=== PATIENT | male | born 1970 | race Caucasian/White ===

== ENCOUNTER 2017-12-22 19:09 | Emergency (ER) | payer BC ==
[2017-12-22] MEDS ORDERED: XYLOCAINE 1% HCL 20 ML MDV IJ ONE (19:48)
[2017-12-22] MEDS ORDERED: Adacel Vial IM ONE ×2 (19:48→19:55)
--- NOTE | 2017-12-22 19:49 | ERPHSYRPT ---
- History of Present Illness Time Seen by Provider: 12/22/17 19:45 Source: patient, family Exam Limitations: no limitations Physician History: The patient is a 47-year-old male with his complaining that he accidentally cut his left knee with a newly sharpened chainsaw while cutting a tree limb. He was able to walk on his leg but he did not bend it because it would open up the wound and cause bleeding. He denies numbness or tingling. His past medical history is unremarkable. He does not know when his last tetanus vaccination was given to him. Timing/Duration: today Quality: painful Severity: moderate Location: extremities (left knee) Possible Causes: other (chain saw) Associated Symptoms: other (laceration), No paresthesia Allergies/Adverse Reactions: No Known Drug Allergies Allergy (Unverified 12/22/17 19:48) - Review of Systems Constitutional: No Fever, No Chills Eyes: No Symptoms Ears, Nose, & Throat: No Symptoms Respiratory: No Cough, No Dyspnea Cardiac: No Chest Pain, No Edema, No Syncope Abdominal/Gastrointestinal: No Abdominal Pain, No Nausea, No Vomiting, No Diarrhea Genitourinary Symptoms: No Dysuria Musculoskeletal: No Back Pain, No Neck Pain Skin: Other (laceration) Neurological: No Dizziness, No Focal Weakness, No Sensory Changes Psychological: No Symptoms Endocrine: No Symptoms Hematologic/Lymphatic: No Symptoms Immunological/Allergic: No Symptoms All Other Systems: Reviewed and Negative - Nursing Vital Signs Nursing Vital Signs: Initial Vital Signs Temperature 99.1 F 12/22/17 19:35 Pulse Rate 72 12/22/17 19:35 Respiratory Rate 16 12/22/17 19:35 Blood Pressure 161/97 12/22/17 19:35 O2 Sat by Pulse Oximetry 97 12/22/17 19:35 Pain Scale Pain Intensity 4 - Physical Exam General Appearance: no apparent distress, alert Eye Exam: PERRL/EOMI, eyes nml inspection Ears, Nose, Throat Exam: normal ENT inspection, pharynx normal, moist mucous membranes Neck Exam: normal inspection, non-tender, supple, full range of motion Respiratory Exam: normal breath sounds, lungs clear, No respiratory distress Cardiovascular Exam: regular rate/rhythm, normal heart sounds Gastrointestinal/Abdomen Exam: soft, mass, No tenderness Rectal Exam: not done Back Exam: normal inspection, normal range of motion, No CVA tenderness, No vertebral tenderness Extremity Exam: normal inspection, normal range of motion Neurologic Exam: alert, oriented x 3, cooperative, normal mood/affect, sensation nml, No motor deficits Skin Exam: laceration (7 cm linear laceration to superior aspect of left knee) SpO2 Interpretation: normal Oxygen Delivery: Room Air Procedures - Laceration/Wound Repair Left Knee Wound Location: Left, upper leg Irrigated: Yes Hibiclens Prep: Yes Anesthesia: local, 1% Lidocaine Volume Anesthetic (ccs): 20 Wound Repaired With: sutures Suture Size/Type: 4-0, ethilon Number of Sutures: 15 Layer Closure?: No Sterile Dressing Applied?: Yes Splint Applied?: No Sling Applied?: No - Radiology Exams Left Knee X-ray Interpretation: Interpreted by me, Negative, No Fracture Ordered Tests: Active Orders 24 hr Category Date Time Status Wound Care STAT Care 12/22/17 19:48 Active Wound Care STAT Care 12/22/17 19:55 Active KNEE (3 VIEWS) Stat Exams 12/22/17 19:50 Taken Medication Summary Discontinued Medications Generic Name Dose Route Start Last Admin Trade Name Freq PRN Reason Stop Dose Admin Amoxicillin/Clavulanate Potassium 875 mg 12/22/17 19:50 12/22/17 20:40 Augmentin 875-125 Tablet PO 12/22/17 19:51 875 mg STAT ONE Administration Amoxicillin/Clavulanate Potassium Confirm 12/22/17 19:55 Augmentin 875-125 Tablet Administered 12/22/17 19:56 Dose 875 mg .ROUTE .STK-MED ONE Diphtheria/Tetanus/Acell Pertussis 0.5 ml 12/22/17 19:48 12/22/17 20:39 Adacel Vial IM 12/22/17 19:49 0.5 ml .ONCE ONE Administration Diphtheria/Tetanus/Acell Pertussis Confirm 12/22/17 19:55 Adacel Vial Administered 12/22/17 19:56 Dose 0.5 ml IM .STK-MED ONE Ketorolac Tromethamine 60 mg 12/22/17 20:34 12/22/17 21:05 Toradol 30 Mg Injection IM 12/22/17 20:35 60 mg STAT ONE Administration Ketorolac Tromethamine Confirm 12/22/17 20:36 Toradol 30 Mg Injection Administered 12/22/17 20:37 Dose 60 mg .ROUTE .STK-MED ONE Lidocaine HCl 20 ml 12/22/17 19:48 12/22/17 20:40 Xylocaine 1% Hcl 20 Ml Mdv IJ 12/22/17 19:49 20 ml STAT ONE Administration Lidocaine HCl Confirm 12/22/17 19:50 Xylocaine 1% Hcl 20 Ml Mdv Administered 12/22/17 19:51 Dose 20 ml .ROUTE .STK-MED ONE - Progress Progress: improved Counseled pt/family regarding: diagnosis, need for follow-up, rad results - Departure Time of Disposition: 20:36 Departure Disposition: Home Clinical Impression: Laceration of left knee Condition: Stable Critical Care Time: No Referrals: GIULIANO TOWNSEND MD [Primary Care Provider] - Additional Instructions: You had a laceration of the left knee that was closed with 15 sutures. You were given Toradol 60 mg by IM. You were also given a tetanus vaccination. You were given Augmentin 875 orally in the ER. Continue with Augmentin 875 to times a day for 10 days. Take naproxen 500 mg 2 times a day as needed. Have the sutures removed by your primary medical doctor in 12-14 days. You were given a work excuse for tomorrow. Prescriptions: Amoxicillin/Potassium Clav [Augmentin 875-125 Tablet] 875 mg PO BID #20 tablet Naproxen 500 mg PO BID PRN #30 tablet
[2017-12-22] MEDS ORDERED: XYLOCAINE 1% HCL 20 ML MDV ONE (19:50)
[2017-12-22] MEDS ORDERED: Augmentin 875-125 Tablet PO ONE (19:50)
[2017-12-22] MEDS ORDERED: Augmentin 875-125 Tablet ONE (19:55)
[2017-12-22] MEDS ORDERED: TORAdol 30 mg Injection IM ONE (20:34)
[2017-12-22] MEDS ORDERED: TORAdol 30 mg Injection ONE (20:36)
[2017-12-22 20:50] VITALS: O2SAT 96
[2017-12-22 21:07] VITALS: BP 168/98; PULSE 68
--- NOTE | 2017-12-23 08:58 | XRAY ---
Indication: Pain following chainsaw injury. Comparison: None 3 views of the left knee demonstrates mild anterior soft tissue swelling and small suprapatellar spur. No other bony, articular, or soft tissue abnormalities.
== END 2017-12-22 21:30 | disposition home or self-care (01) ==
LOC: ED 19:09
PROC: 0HQLXZZ Repair Left Lower Leg Skin, External Approach (ICD-10-PCS; principal; 2017-12-22)
DX: S81.012A Laceration without foreign body, left knee, initial encounter (principal); W45.8XXA Other foreign body or object entering through skin, initial encounter; Y93.H2 Activity, gardening and landscaping
CPT/HCPCS: 12002; 73562; 90471; 90715; 96372; 99284; J1885; A9270-GY

== ENCOUNTER 2019-04-03 14:27 | Emergency (ER) | payer BC ==
[2019-04-03] MEDS ORDERED: TYLENOL 325 MG PO STA (15:19)
[2019-04-03] MEDS ORDERED: TORAdol 30 mg Injection IV ONE (15:20)
[2019-04-03] MEDS ORDERED: DUONEB 0.5-3 MG/3 ml Neb IH ONE ×2 (15:21→16:01)
[2019-04-03] MEDS ORDERED: TYLENOL 325 MG ONE ×2 (15:30→15:33)
[2019-04-03] MEDS ORDERED: TORAdol 30 mg Injection ONE (15:30)
--- NOTE | 2019-04-03 15:43 | ERPHSYRPT ---
- History of Present Illness Time Seen by Provider: 04/03/19 15:01 Source: patient Exam Limitations: no limitations Patient Subjective Stated Complaint: Pt states "I am sick. I have body aches, fever, sore throat, I feel horrible." Triage Nursing Assessment: pt presented alert and oriented X 3, skin wpd pt ambulates with an upright steady gait, able to speak in clear full sentences pt has intermittant cough. Physician History: 48 years old male presented in the ER with chief complaint offlulike symptoms for the last 5 days. Patient reports having low-grade fever intermittently responding to [id number] medications with a MAXIMUM TEMPERATURE of 102 couple of days ago. He is also complaining of generalized body aches. 2 days ago he started to have nonproductive cough with some chest soreness. Today he' s having nasal/sinus congestion and mild headache. Did not have a flu shot this CZ. Denies any sick contact. Timing/Duration: day(s) (5), intermittent, worse Cough Quality/Degree: moderate, dry cough Associated Symptoms: fever, chills, chest pain/soreness, cough, muscle aches, nasal congestion, sinus infection, sore throat Allergies/Adverse Reactions: No Known Drug Allergies Allergy (Verified 04/03/19 14:36) Hx Tetanus, Diphtheria Vaccination/Date Given: Yes Hx Influenza Vaccination/Date Given: No Hx Pneumococcal Vaccination/Date Given: No Immunizations Up to Date: Yes - Review of Systems Constitutional: Fever, Chills, Fatigue, Malaise Eyes: No Symptoms Ears, Nose, & Throat: Nose Congestion, Throat Swelling Respiratory: Cough, Wheezing Cardiac: No Symptoms Abdominal/Gastrointestinal: No Symptoms Genitourinary Symptoms: No Symptoms Musculoskeletal: Myalgias Neurological: No Symptoms Psychological: No Symptoms Endocrine: No Symptoms Hematologic/Lymphatic: No Symptoms Immunological/Allergic: No Symptoms - Past Medical History Pertinent Past Medical History: No - Past Surgical History Past Surgical History: No - Social History Smoking Status: Never smoker Exposure to second hand smoke: No Drug Use: none Patient Lives Alone: No - Nursing Vital Signs Nursing Vital Signs: Initial Vital Signs Temperature 98.9 F 04/03/19 14:32 Pulse Rate 98 H 04/03/19 14:32 Respiratory Rate 20 04/03/19 14:32 Blood Pressure 178/93 04/03/19 14:32 O2 Sat by Pulse Oximetry 95 04/03/19 14:32 Pain Scale Pain Intensity 4 - Physical Exam General Appearance: no apparent distress Eye Exam: eyes nml inspection Ears, Nose, Throat Exam: normal ENT inspection, TMs normal, pharyngeal erythema Neck Exam: normal inspection, non-tender, supple, full range of motion Respiratory Exam: normal breath sounds, lungs clear, respiratory distress Cardiovascular Exam: regular rate/rhythm, normal heart sounds, normal peripheral pulses Gastrointestinal/Abdomen Exam: soft, normal bowel sounds, No tenderness, No distention Back Exam: normal inspection Extremity Exam: normal inspection, normal range of motion Neurologic Exam: alert, oriented x 3, cooperative, rn home health II-XII nml as tested, sensation nml Skin Exam: normal color SpO2 Interpretation: normal SpO2: 95 O2 Delivery: Room Air - Course Nursing assessment & vital signs reviewed: Yes Ordered Tests: Active Orders 24 hr Category Date Time Status CHEST 2 VIEWS (PA AND LAT) Stat Exams 04/03/19 15:20 Taken CBC W DIFF Stat Lab 04/03/19 16:05 Completed CMP Stat Lab 04/03/19 16:05 Completed Peak Expiratory Flow Rate ONCE RT 04/03/19 16:16 Completed Respiratory Therapy Assessment DAILY RT 04/03/19 16:16 Completed Medication Summary Discontinued Medications Generic Name Dose Route Start Last Admin Trade Name Freq PRN Reason Stop Dose Admin Acetaminophen 650 mg 04/03/19 15:19 Tylenol 325 Mg PO 04/03/19 15:20 STAT STA Acetaminophen Confirm 04/03/19 15:30 Tylenol 325 Mg Administered 04/03/19 15:31 Dose 325 mg .ROUTE .STK-MED ONE Acetaminophen Confirm 04/03/19 15:33 Tylenol 325 Mg Administered 04/03/19 15:34 Dose 325 mg .ROUTE .STK-MED ONE Albuterol/Ipratropium 3 ml 04/03/19 15:21 04/03/19 16:16 Duoneb 0.5-3 Mg/3 Ml Neb IH 04/03/19 15:22 3 ml STAT ONE Administration Albuterol/Ipratropium Confirm 04/03/19 16:01 Duoneb 0.5-3 Mg/3 Ml Neb Administered 04/03/19 16:02 Dose 3 ml IH .STK-MED ONE Ketorolac Tromethamine 30 mg 04/03/19 15:20 Toradol 30 Mg Injection IV 04/03/19 15:21 STAT ONE Ketorolac Tromethamine Confirm 04/03/19 15:30 Toradol 30 Mg Injection Administered 04/03/19 15:31 Dose 30 mg .ROUTE .STK-MED ONE Oseltamivir Phosphate 75 mg 04/03/19 16:48 Tamiflu 75mg Capsule PO 04/03/19 16:49 STAT ONE Oseltamivir Phosphate Confirm 04/03/19 16:50 Tamiflu 75mg Capsule Administered 04/03/19 16:51 Dose 75 mg PO .STK-MED ONE Prednisone 60 mg 04/03/19 16:53 Deltasone 20 Mg PO 04/03/19 16:54 STAT ONE Lab/Rad Data: Laboratory Result Diagrams 04/03/19 16:05 04/03/19 16:05 Laboratory Results 04/03/19 04/03/19 04/03/19 Range/Units 16:15 16:05 16:05 WBC 4.8 (4.0-10.5) K/mm3 RBC 4.74 (4.1-5.6) M/mm3 Hgb 15.0 (12.5-18.0) gm/dl Hct 43.1 (42-50) % MCV 90.9 (78-100) fl MCH 31.6 (26-32) pg MCHC 34.8 (32-36) g/dl RDW 12.6 (11.5-14.0) % Plt Count 137 L (150-450) K/mm3 MPV 9.7 (7.5-11.0) fl Gran % 76.9 H (36.0-66.0) % Eos # (Auto) 0.05 (0-0.5) Absolute Lymphs (auto) 0.54 L (1.0-4.6) Absolute Monos (auto) 0.51 (0.0-1.3) Lymphocytes % 11.3 L (24.0-44.0) % Monocytes % 10.6 (0.0-12.0) % Eosinophils % 1.0 (0.00-5.0) % Basophils % 0.2 (0.0-0.4) % Absolute Granulocytes 3.69 (1.4-6.9) Basophils # 0.01 (0-0.4) Sodium 138 (137-145) mmol/L Potassium 4.4 (3.5-5.1) mmol/L Chloride 101 (98-107) mmol/L Carbon Dioxide 31 H (22-30) mmol/L Anion Gap 10.8 (5-15) MEQ/L BUN 10 (9-20) mg/dL Creatinine 1.15 (0.66-1.25) mg/dL Estimated GFR > 60.0 ML/MIN Glucose 126 H (74-106) mg/dL Calcium 8.9 (8.4-10.2) mg/dL Total Bilirubin 0.70 (0.2-1.3) mg/dL AST 48 (17-59) U/L ALT 31 (0-50) U/L Alkaline Phosphatase 54 (38-126) U/L Serum Total Protein 7.1 (6.3-8.2) g/dL Albumin 4.1 (3.5-5.0) g/dL Influenza Type A Ag NEGATIVE (NEGATIVE) Influenza Type B Ag POSITIVE (NEGATIVE) RSV (PCR) NEGATIVE (Negative) Group A Strep Antibody NEGATIVE (NEGATIVE) - Progress Progress: improved, re-examined Air Movement: good Progress Note: 48-year-old is evaluated for flulike symptoms.patient does not have fever today. He had mild wheezing and given breathing treatment along with Tylenol and Toradol. On reevaluation the patient is feeling much improved. Chest x- ray did not show any acute pneumonic infiltrate/consolidation. Grossly unremarkable blood work. Does have influenza P. Despite the fact patient has had symptoms going on for the last 5 days, I would still treat him with Tamiflu. We'll also give steroids to help with breathing. Recommended taking Tylenol/Robitussin for symptomatic relief. I do not think patient needs any further workup or inpatient admission and is stable for discharge. He does not have a toxic appearance. Plan discussed with patient that he seems understanding. Discussed symptoms like signs of worsening needing return he voices understanding. 04/03/19 16:57 Blood Culture(s) Obtained: No Antibiotics given: No Counseled pt/family regarding: lab results, diagnosis, need for follow-up, rad results - Departure Departure Disposition: Home Clinical Impression: Influenza B Condition: Stable Critical Care Time: No Referrals: GIULIANO TOWNSEND MD [ACTIVE STAFF] - Follow Up with PCP/3 days Instructions: Fever, Adult (DC), Flu, Adult (DC) Additional Instructions: followup with primary care physician for reevaluation. Drink plenty of fluids. Take Tylenol/Robitussin as needed. Return to ER for worsening fever/ difficulty breathing etc.
[2019-04-03 16:14] LABS: Absolute Neutrophil Ct (ANC) 3.69 (1.4-6.9); BASOPHIL % 0.2 % (0.0-0.4); Basophil (Absolute #) 0.01 (0-0.4); Eosinophil (Absolute #) 0.05 (0-0.5); Hematocrit 43.1 % (42-50); Lymphocyte (Absolute #) 0.54 (1.0-4.6); Lymphocytes % 11.3 % (24.0-44.0); Mean Cell Volume 90.9 fl (78-100); Mean Corpuscular Hemoglobin 31.6 pg (26-32); Mean Corpuscular Hgb Concent. 34.8 g/dl (32-36); Mean Platelet Volume 9.7 fl (7.5-11.0); Monocyte (Absolute #) 0.51 (0.0-1.3); Monocytes % 10.6 % (0.0-12.0); Neutrophil % 76.9 % (36.0-66.0); Platelet Count 137 K/mm3 (150-450); Red Blood Count 4.74 M/mm3 (4.1-5.6); Red Cell Distribution Width 12.6 % (11.5-14.0); White Blood Count 4.8 K/mm3 (4.0-10.5)
[2019-04-03 16:26] LABS: ALBUMIN 4.1 g/dL (3.5-5.0); ALKALINE PHOSPHATASE 54 U/L (38-126); ANION GAP 10.8 MEQ/L (5-15); BLOOD UREA NITROGEN 10 mg/dL (9-20); CHLORIDE 101 mmol/L (98-107); Calcium 8.9 mg/dL (8.4-10.2); Carbon Dioxide 31 mmol/L (22-30); Creatinine 1 1.15 mg/dL (0.66-1.25); Glucose 126 mg/dL (74-106); Potassium 4.4 mmol/L (3.5-5.1); SGOT/AST 48 U/L (17-59); SGPT/ALT 31 U/L (0-50); SODIUM 138 mmol/L (137-145); Total Protein 7.1 g/dL (6.3-8.2)
[2019-04-03 16:46] LABS: INFLUENZA A NEGATIVE (NEGATIVE)
[2019-04-03 16:47] LABS: INFLUENZA B POSITIVE (NEGATIVE); RESPIRATORY SYNCTIAL VIRUS NEGATIVE (Negative)
[2019-04-03] MEDS ORDERED: Tamiflu 75MG Capsule PO ONE ×2 (16:48→16:50)
[2019-04-03] MEDS ORDERED: DELTASONE 20 MG PO ONE (16:53)
[2019-04-03] MEDS ORDERED: DELTASONE 20 MG ONE (16:55)
[2019-04-03 17:24] VITALS: BP 148/84; PULSE 72; O2SAT 96
--- NOTE | 2019-04-03 20:10 | XRAY ---
Indication: Cough. Comparison: None PA/lateral chest demonstrates normal heart and lungs. Bony thorax intact.
== END 2019-04-03 17:23 | disposition home or self-care (01) ==
LOC: ED 14:27
DX: J11.1 Influenza due to unidentified influenza virus with other respiratory manifestations (principal)
CPT/HCPCS: 36000; 36415; 71046; 80053; 85025; 87631; 87651; 94150; 94640; 96372; 99284; J1885; A9270-GY

== ENCOUNTER 2022-02-19 08:19 | Emergency (ER) | payer OTHER ==
[2022-02-19] MEDS ORDERED: Zestril 20 MG PO ONE (08:39)
[2022-02-19] MEDS ORDERED: APRESOLINE 20 MG/ML INJ IV ONE (08:40)
[2022-02-19] MEDS ORDERED: NORVASC 5 MG PO ONE (08:40)
[2022-02-19] MEDS ORDERED: Sodium Chloride 0.9% 1000 ML 1,000 ML IV SCH (08:45)
[2022-02-19] MEDS ORDERED: Sodium Chloride 0.9% 1000 ML 1,000 ML ONE (08:56)
[2022-02-19] MEDS ORDERED: NORVASC 5 MG ONE (08:56)
[2022-02-19] MEDS ORDERED: APRESOLINE 20 MG/ML INJ ONE (08:56)
[2022-02-19 09:10] LABS: Absolute Neutrophil Ct (ANC) 3.25 x10^3/uL (1.4-6.9); Basophil (Absolute #) 0.05 x10^3/uL (0-0.4); Eosinophil % 4.1 % (0.00-5.0); Eosinophil (Absolute #) 0.24 x10^3/uL (0-0.5); Hematocrit 44.3 % (42-50); Hemoglobin 15.2 g/dL (12.5-18.0); Lymphocyte (Absolute #) 1.78 x10^3/uL (1.0-4.6); Lymphocytes % 30.7 % (24.0-44.0); Mean Cell Volume 90.4 fL (78-100); Mean Corpuscular Hgb Concent. 34.3 g/dL (32-36); Monocyte (Absolute #) 0.45 x10^3/uL (0.0-1.3); Monocytes % 7.8 % (0.0-12.0); Neutrophil % 56.2 % (36.0-66.0); Platelet Count 225 x10^3/uL (150-450); Red Cell Distribution Width 11.9 % (11.5-14.0); White Blood Count 5.8 x10^3/uL (4.0-10.5)
--- NOTE | 2022-02-19 09:21 | XRAY ---
Indication: Hypertension. Comparison: April 03, 2019 Portable chest remains inflated and clear. Heart borderline enlarged. Bony thorax intact with mild degenerative changes. Impression: Nonacute chest.
[2022-02-19 09:33] LABS: ALBUMIN 4.3 g/dL (3.5-5.0); ALKALINE PHOSPHATASE 53 U/L (38-126); AMYLASE 67 U/L (30-110); ANION GAP 9.2 MEQ/L (5-15); BLOOD UREA NITROGEN 15 mg/dL (9-20); CHLORIDE 106 mmol/L (98-107); Calcium 8.8 mg/dL (8.4-10.2); Carbon Dioxide 28 mmol/L (22-30); Creatinine 1 1.12 mg/dL (0.66-1.25); EST GLOMERULAR FILTRATION RATE > 60.0 ML/MIN; Glucose 104 mg/dL (74-106); LIPASE 206 U/L (23-300); MAGNESIUM 1.9 mg/dL (1.6-2.3); NT PRO BNP 1230 pg/mL (0-900); Potassium 3.4 mmol/L (3.5-5.1); SGOT/AST 33 U/L (17-59); SGPT/ALT 36 U/L (0-50); SODIUM 140 mmol/L (137-145)
--- NOTE | 2022-02-19 10:28 | ERPHSYRPT ---
- History of Present Illness Time Seen by Provider: 02/19/22 08:35 Patient Subjective Stated Complaint: Patient states "I woke up at 4am this morning feeling funny, dizzy and my head feels huge. I took my blood pressure and it was 260/170." Triage Nursing Assessment: Patient reprots waking up this morning feeling dizzy so he took his bp at home and it was 260/170. Reporting continued dizziness. Ambulated to cot with slow but steady gait. Alert and oriented x3. No apparent respiratory distress. Reports he has noticed some increased blurred vision. He did not take his lisinopril this morning Physician History: Patient is a 51-year-old male who presents with a complaint of elevated blood pressure and some headache he also was slightly dizzy he took his blood pressure was 260/170 he denies any chest pain says he did notice some increase in vision being blurred. Timing/Duration: today Severity: moderate Modifying Factors: Improves With: nothing Associated Symptoms: headaches Allergies/Adverse Reactions: No Known Drug Allergies Allergy (Verified 02/19/22 08:27) Home Medications: Lisinopril 10 mg [Zestril 10 MG] 10 mg PO DAILY 02/19/22 [History] Hx Tetanus, Diphtheria Vaccination/Date Given: Yes Hx Influenza Vaccination/Date Given: No Hx Pneumococcal Vaccination/Date Given: No Immunizations Up to Date: Yes Travel Risk - International Travel Have you traveled outside of the country in past 3 weeks: No - Coronavirus Screening Are you exhibiting any of the following symptoms?: No Close contact with a COVID-19 positive Pt in past 14-21 Days: No - Vaccine Status Have you recieved a Covid-19 vaccination: Yes [id number] [employer]: [employer] - Vaccination Dates Date of 2cond Vaccination (if applicable): unknown - Review of Systems Constitutional: No Fever, No Chills Eyes: Vision Changes Ears, Nose, & Throat: No Symptoms Respiratory: No Cough, No Dyspnea Cardiac: No Chest Pain, No Edema, No Syncope Abdominal/Gastrointestinal: No Abdominal Pain, No Nausea, No Vomiting, No Diarrhea Genitourinary Symptoms: No Dysuria Musculoskeletal: No Back Pain, No Neck Pain Skin: No Rash Neurological: Dizziness, Headache, No Focal Weakness, No Sensory Changes Psychological: No Symptoms Endocrine: No Symptoms All Other Systems: Reviewed and Negative - Past Medical History Pertinent Past Medical History: No ENT History: No Pertinent History Cardiac History: Hypertension Respiratory History: No Pertinent History GI Medical History: No Pertinent History - Past Surgical History Past Surgical History: No - Social History Smoking Status: Never smoker Exposure to second hand smoke: No Drug Use: none Patient Lives Alone: Yes - Nursing Vital Signs Nursing Vital Signs: Initial Vital Signs Temperature 97.9 F 02/19/22 08:28 Pulse Rate 84 02/19/22 08:28 Respiratory Rate 16 02/19/22 08:28 Blood Pressure 215/105 02/19/22 08:28 O2 Sat by Pulse Oximetry 96 02/19/22 08:28 Pain Scale Pain Intensity 0 - Physical Exam General Appearance: mild distress, alert Eye Exam: PERRL/EOMI, eyes nml inspection Ears, Nose, Throat Exam: normal ENT inspection, TMs normal, pharynx normal, moist mucous membranes Neck Exam: normal inspection, non-tender, supple, full range of motion Respiratory Exam: normal breath sounds, lungs clear, No respiratory distress Cardiovascular Exam: regular rate/rhythm, normal heart sounds, normal peripheral pulses Gastrointestinal/Abdomen Exam: soft, normal bowel sounds, No tenderness, No mass Back Exam: normal inspection, normal range of motion, No CVA tenderness, No vertebral tenderness Extremity Exam: normal inspection, normal range of motion, pelvis stable Neurologic Exam: alert, oriented x 3, cooperative, normal mood/affect, nml cerebellar function, nml station & gait, sensation nml, No motor deficits Skin Exam: normal color, warm, dry, No rash Lymphatic Exam: No adenopathy SpO2: 98 Ordered Tests: Active Orders 24 hr Category Date Time Status EKG-ER Only STAT Care 02/19/22 08:41 Active IV Insertion STAT Care 02/19/22 08:41 Active CHEST 1 VIEW (PORTABLE) Stat Exams 02/19/22 08:42 Completed AMYLASE Stat Lab 02/19/22 08:35 Completed CBC W DIFF Stat Lab 02/19/22 08:35 Completed CMP Stat Lab 02/19/22 08:35 Completed LIPASE Stat Lab 02/19/22 08:35 Completed Lactic Acid Stat Lab 02/19/22 08:55 Completed MAGNESIUM Stat Lab 02/19/22 08:35 Completed NT PRO BNP Stat Lab 02/19/22 08:35 Completed TROPONIN Q4H Lab 02/19/22 08:35 Completed TROPONIN Q4H Lab 02/19/22 12:45 Ordered TROPONIN Q4H Lab 02/19/22 16:45 Ordered UA W/RFX CULTURE Stat Lab 02/19/22 10:55 Ordered Medication Summary Generic Name Dose Route Start Last Admin Trade Name Erin PRN Reason Stop Dose Admin Sodium Chloride 1,000 mls @ 50 mls/hr 02/19/22 08:45 02/19/22 08:57 Sodium Chloride 0.9% 1000 Ml IV 03/21/22 08:44 50 mls/hr .Q20H NATI Administration Discontinued Medications Generic Name Dose Route Start Last Admin Trade Name Erin PRN Reason Stop Dose Admin Amlodipine Besylate 10 mg 02/19/22 08:40 02/19/22 08:57 Amlodipine Besylate 5 Mg Tablet PO 02/19/22 08:41 10 mg STAT ONE Administration Amlodipine Besylate Confirm 02/19/22 08:56 Amlodipine Besylate 5 Mg Tablet Administered 02/19/22 08:57 Dose 10 mg .ROUTE .STK-MED ONE Hydralazine HCl 10 mg 02/19/22 08:40 02/19/22 09:01 Hydralazine Hcl 20 Mg/Ml Vial IV 02/19/22 08:41 Not Given STAT ONE Hydralazine HCl Confirm 02/19/22 08:56 Hydralazine Hcl 20 Mg/Ml Vial Administered 02/19/22 08:57 Dose 20 mg .ROUTE .STK-MED ONE Lisinopril 20 mg 02/19/22 08:39 02/19/22 09:04 Lisinopril 20 Mg Tablet PO 02/19/22 08:40 20 mg STAT ONE Administration Lab/Rad Data: Laboratory Result Diagrams 02/19/22 08:35 02/19/22 08:35 Laboratory Results 02/19/22 02/19/22 02/19/22 Range/Units 08:55 08:35 08:35 WBC (4.0-10.5) x10^3/uL RBC (4.1-5.6) x10^6/uL Hgb (12.5-18.0) g/dL Hct (42-50) % MCV (78-100) fL MCH (26-32) pg MCHC (32-36) g/dL RDW (11.5-14.0) % Plt Count (150-450) x10^3/uL MPV (7.5-11.0) fL Gran % (36.0-66.0) % Immature Gran % (Auto) (0.00-0.4) % Nucleat RBC Rel Count (0.00-0.1) % Eos # (Auto) (0-0.5) x10^3/uL Immature Gran # (Auto) (0.00-0.03) x10^3u/L Absolute Lymphs (auto) (1.0-4.6) x10^3/uL Absolute Monos (auto) (0.0-1.3) x10^3/uL Absolute Nucleated RBC (0.00-0.01) x10^3u/L Lymphocytes % (24.0-44.0) % Monocytes % (0.0-12.0) % Eosinophils % (0.00-5.0) % Basophils % (0.0-0.4) % Absolute Granulocytes (1.4-6.9) x10^3/uL Basophils # (0-0.4) x10^3/uL Sodium 140 (137-145) mmol/L Potassium 3.4 L (3.5-5.1) mmol/L Chloride 106 (98-107) mmol/L Carbon Dioxide 28 (22-30) mmol/L Anion Gap 9.2 (5-15) MEQ/L BUN 15 (9-20) mg/dL Creatinine 1.12 (0.66-1.25) mg/dL Estimated GFR > 60.0 ML/MIN Glucose 104 (74-106) mg/dL Lactic Acid 1.0 (0.4-2.0) Calcium 8.8 (8.4-10.2) mg/dL Magnesium 1.9 (1.6-2.3) mg/dL Total Bilirubin 1.30 (0.2-1.3) mg/dL AST 33 (17-59) U/L ALT 36 (0-50) U/L Alkaline Phosphatase 53 (38-126) U/L Troponin I 0.026 (0.000-0.034) ng/mL NT-Pro-B Natriuret Pep 1230 H (0-900) pg/mL Serum Total Protein 7.0 (6.3-8.2) g/dL Albumin 4.3 (3.5-5.0) g/dL Amylase 67 (30-110) U/L Lipase 206 (23-300) U/L 02/19/22 Range/Units 08:35 WBC 5.8 (4.0-10.5) x10^3/uL RBC 4.90 (4.1-5.6) x10^6/uL Hgb 15.2 (12.5-18.0) g/dL Hct 44.3 (42-50) % MCV 90.4 (78-100) fL MCH 31.0 (26-32) pg MCHC 34.3 (32-36) g/dL RDW 11.9 (11.5-14.0) % Plt Count 225 (150-450) x10^3/uL MPV 9.0 (7.5-11.0) fL Gran % 56.2 (36.0-66.0) % Immature Gran % (Auto) 0.3 (0.00-0.4) % Nucleat RBC Rel Count 0.0 (0.00-0.1) % Eos # (Auto) 0.24 (0-0.5) x10^3/uL Immature Gran # (Auto) 0.02 (0.00-0.03) x10^3u/L Absolute Lymphs (auto) 1.78 (1.0-4.6) x10^3/uL Absolute Monos (auto) 0.45 (0.0-1.3) x10^3/uL Absolute Nucleated RBC 0.00 (0.00-0.01) x10^3u/L Lymphocytes % 30.7 (24.0-44.0) % Monocytes % 7.8 (0.0-12.0) % Eosinophils % 4.1 (0.00-5.0) % Basophils % 0.9 (0.0-0.4) % Absolute Granulocytes 3.25 (1.4-6.9) x10^3/uL Basophils # 0.05 (0-0.4) x10^3/uL Sodium (137-145) mmol/L Potassium (3.5-5.1) mmol/L Chloride (98-107) mmol/L Carbon Dioxide (22-30) mmol/L Anion Gap (5-15) MEQ/L BUN (9-20) mg/dL Creatinine (0.66-1.25) mg/dL Estimated GFR ML/MIN Glucose (74-106) mg/dL Lactic Acid (0.4-2.0) Calcium (8.4-10.2) mg/dL Magnesium (1.6-2.3) mg/dL Total Bilirubin (0.2-1.3) mg/dL AST (17-59) U/L ALT (0-50) U/L Alkaline Phosphatase (38-126) U/L Troponin I (0.000-0.034) ng/mL NT-Pro-B Natriuret Pep (0-900) pg/mL Serum Total Protein (6.3-8.2) g/dL Albumin (3.5-5.0) g/dL Amylase (30-110) U/L Lipase (23-300) U/L - Progress Progress: improved Progress Note: 02/19/22 11:17 Patient was treated with oral meds and simply watched his blood pressure essentially normalized over few hours. - Departure Departure Disposition: Home Clinical Impression: Hypertension Condition: Stable Critical Care Time: No Referrals: DOCTOR,NO FAMILY [Primary Care Provider] - Follow up/PCP as directed Instructions: Malignant Hypertension (DC) Prescriptions: Amlodipine Besylate 10 mg PO DAILY 30 Days #30 tablet Lisinopril 20 mg [Zestril 20 MG] 20 mg PO DAILY #30 tablet
[2022-02-19 11:09] LABS: Mucus SLIGHT /HPF (NEGATIVE)
[2022-02-19 11:13] VITALS: BP 148/73; PULSE 63
[2022-02-19 11:19] VITALS: O2SAT 98
[2022-02-19 11:24] LABS: Appearance CLEAR (CLEAR); Bilirubin NEGATIVE (NEGATIVE); Dipstick done @ ? MAIN LAB; Glucose NEGATIVE (NEGATIVE); Ketones NEGATIVE (NEGATIVE); Nitrite NEGATIVE (NEGATIVE); Protein,Urine Dip NEGATIVE (Negative); RBC NEGATIVE Ery/ul (0-5); Urobilinogen 0.2 mg/dL (0-1)
[2022-02-19 11:25] LABS: Urine Cultured Indicated? NO
== END 2022-02-19 11:34 | disposition home or self-care (01) ==
LOC: ED 08:19
DX: I10 Essential (primary) hypertension (principal); R51.9 Headache, unspecified; R42 Dizziness and giddiness; Z79.899 Other long term (current) drug therapy
CPT/HCPCS: 36000; 36415; 71045; 80053; 81015; 82150; 83605; 83690; 83735; 83880; 84484; 85025; 93005; 99284; J0360; A9270-GY